=== PATIENT | female | born 1965 | race Caucasian/White ===

== ENCOUNTER 2017-06-25 09:00 | Inpatient (IN) | payer BC ==
--- NOTE | 2017-06-12 17:08 | HP ---
HISTORY AND PHYSICAL: DATE OF SURGERY: 06/25/17 DATE OF OFFICE VISIT: 06/12/17 SURGEON: Martha Rocha MD * (DICTATED BY LAURY KRAMER) PROCEDURE: Left total knee arthroplasty. CHIEF COMPLAINT: Left knee pain. HISTORY OF PRESENT ILLNESS: Ms. Dinero is a 52-year-old female with complaints of left knee pain. She has failed conservative management and has elected to proceed with a left total knee arthroplasty, which is scheduled on 06/25/[address] Rocha. PAST MEDICAL HISTORY: COPD, depression, and basal cell carcinoma of the skin. PAST SURGICAL HISTORY: Tonsillectomy, cholecystectomy, excision of the basal cell, and removal of an ectopic . CURRENT MEDICATIONS: 1. Meloxicam 15 mg daily. 2. Levocetirizine dihydrochloride 5 mg daily. 3. Symbicort. 4. Nasonex. 5. Ventolin HFA. 6. Duloxetine 60 mg every morning. 7. Alprazolam 0.5 mg 3 times a day as needed. 8. Morrice 5/325 every 6 hours as needed. ALLERGIES: To ADHESIVE TAPE. FAMILY HISTORY: Depression, emphysema, diabetes, asthma. SOCIAL HISTORY: She is a 52-year-old female. She lives with her daughter and son. She smokes one and a half to two packs of cigarettes daily for the last 30 years. She denies use of drugs or alcohol. REVIEW OF SYSTEMS: A complete 14-point review of systems was reviewed with the patient. It was positive for COPD. She denies history of DVT, PE, anesthesia problems, hepatitis C, or HIV. PHYSICAL EXAMINATION GENERAL: She is an obese female, in no acute distress. VITAL SIGNS: She stands 5 feet 7 inches tall, weighs 305 pounds. Her blood pressure is 121/71, her heart rate is 82. HEENT: Normocephalic, atraumatic. NECK: Supple. No palpable lymph nodes. PULMONARY: Lungs are clear to auscultation bilaterally. CARDIO: Regular rate and rhythm. Strong S1, S2. ABDOMEN: Soft, nontender, nondistended. NEUROLOGICAL: She is alert and oriented x3. Cranial nerves II through XII are intact. MUSCULOSKELETAL: Left lower extremity, the skin is intact. There are no open wounds or abrasions. There is a moderate joint effusion, tenderness over the medial and lateral joint line. 5 to 125 degrees of range of motion. 2+ dorsalis pedis pulses. Her lower extremity muscle strengths are intact at 5/5. She has intact sensation. ASSESSMENT AND PLAN: Ms. Dinero is a 52-year-old female with complaints of left knee pain secondary to advanced osteoarthrosis. She has failed conservative management and has elected to proceed with a left total knee arthroplasty, which is scheduled for 06/25/17. Coumadin, Colace, and Percocet were sent to her pharmacy for postoperative pain control and DVT prophylaxis. LAURY KRAMER [id number]/[facility] #: [id number] KRISTINA
[~2017-06-25 09:00] MED LIST: Buffered Lidocaine 0.9% SYRIN* 5 ML/SYR SYRINGE INTRADERM ONE; Famotidine IV* 10 MG/ML 2 ML (20 mg) IV ONE; Metoclopramide TAB* 10 MG PO ONE
[2017-06-25] MEDS ORDERED: Metoclopramide TAB* 10 MG ONE (09:32)
[2017-06-25] MEDS ORDERED: Buffered Lidocaine 0.9% SYRIN* 5 ML/SYR SYRINGE ONE (09:32)
[2017-06-25] MEDS ORDERED: ceFAZolin 2 GM PREMIX (*) 2 GM/50 ML BAG IVPB ONE (09:32)
[2017-06-25] MEDS ORDERED: Famotidine IV* 10 MG/ML 2 ML (20 mg) ONE (09:32)
[2017-06-25] MEDS ORDERED: ceFAZolin 1 GM ADVAN(*) 1 GM ADDV.VIAL IVPB ONE (09:32)
[2017-06-25] MEDS ORDERED: Ketorolac INJ* 30 MG/ML 1 ML VIAL ONE (10:55)
[2017-06-25] MEDS ORDERED: Lidocaine 2% PF * 5 ML VIAL ONE (10:55)
[2017-06-25] MEDS ORDERED: Bupivacaine 0.5% SDV PF* 30 ML VIAL ONE (10:55)
[2017-06-25] MEDS ORDERED: Ondansetron INJ* 2 MG/ML VIAL ONE (10:55)
[2017-06-25] MEDS ORDERED: Dexamethasone IV* 4 MG/ML 1 ML (4 MG) ONE (10:55)
[2017-06-25] MEDS ORDERED: Propofol* 10 MG/ML 20 ML BTL IV PUSH ONE (10:55)
[2017-06-25] MEDS ORDERED: Midazolam* 1 MG/ML 5 ML VIAL (5 MG) ONE (10:56)
[2017-06-25] MEDS ORDERED: Morphine PF AMP (0.5MG/ML)* 5 MG/10 ML AMP ONE (10:56)
[2017-06-25] MEDS ORDERED: fentaNYL* 50 MCG/ML 2 ML VIAL (100 MCG VIAL) ONE (10:56)
[2017-06-25] MEDS ORDERED: KETAMINE HCL* 50 MG/ML 10 ML VIAL ONE (10:56)
[2017-06-25] MEDS ORDERED: Midazolam* 1 MG/ML 2 ML VIAL (2 MG) ONE (12:23)
[2017-06-25] MEDS ORDERED: Propofol* 500 MG/50 ML BTL ONE (12:37)
[2017-06-25] MEDS ORDERED: Lidocaine 2% EPI 1:200000 MPF* 20 ML VIAL ONE (12:49)
[2017-06-25] MEDS ORDERED: fentaNYL* 50 MCG/ML 2 ML VIAL (100 MCG VIAL) IV PRN (13:28)
[2017-06-25] MEDS ORDERED: Ondansetron INJ* 2 MG/ML VIAL IV PRN ×2 (13:28→13:30)
[2017-06-25] MEDS ORDERED: Naloxone* 0.4 MG/ML 1 ML VIAL IV PRN ×3 (13:30→13:36)
[2017-06-25] MEDS ORDERED: oxyCODONE/Acetamin 5/325 MG* TAB PO PRN ×2 (13:30)
[2017-06-25] MEDS ORDERED: EPHEDrine (Pressors)* 50 MG/ML VIAL IV PUSH PRN (13:30)
[2017-06-25] MEDS ORDERED: diPHENhydraMINE IV* 50 MG/ML 1 ml VIAL (BENADRYL) IV PRN (13:30)
[2017-06-25] MEDS ORDERED: Ketorolac INJ* 30 MG/ML 1 ML VIAL IV PRN (13:30)
[2017-06-25] MEDS ORDERED: Ropivacaine* 300 MG in NS 0.9% 250 ML* 240 ML EPIDURAL SCH (14:00)
[2017-06-25] MEDS ORDERED: Bisacodyl SUPP* 10 MG SUPP PR PRN (14:14)
[2017-06-25] MEDS ORDERED: Polyethylene Glycol 3350* 17 GM PACKET PO PRN (14:14)
[2017-06-25] MEDS ORDERED: Albuterol HFA INHALER* 8 gm MDI INH PRN (14:29)
[2017-06-25] MEDS ORDERED: diPHENhydraMINE IV* 50 MG/ML 1 ml VIAL (BENADRYL) ONE (15:35)
[2017-06-25] MEDS ORDERED: Albuterol/Ipratropium NEB.SOL* Albuterol 2.5 MG/Ipratropium 0.5 MG 3 ML INH PRN (15:44)
[2017-06-25] MEDS ORDERED: Albuterol 2.5 MG/3 ML NEB.SOL* (0.083%) ONE (15:49)
[2017-06-25] MEDS ORDERED: Ipratropium 0.5MG/2.5ML NEB* 0.5 MG/2.5 ML NEB.SOLN ONE (15:50)
--- NOTE | 2017-06-25 15:58 | CONSULT ---
Subjective Date of Service: 06/25/17 Interval History: This is a 52 year old obese female with a longstanding history of osteoarthritis bilaterally of the knees. Patient states she has undergone conservative treatment over the years - PT, injections, anti-inflammatories, with no relief. Radiography shows end-stage degenerative disease of the knee. She has presented for elective LTKA. We have been consulted for medical co- managment of COPD. Family History: Unchanged from Admission - Mother - diet controlled DM Social History: Unchanged from Admission - 45 pack year hx of tobacco abuse; denies ETOH, denies illicit substance use Past Medical History: Findings - COPD, depression, anxiety, allergic rhinitis, OA, morbid obesity, tobacco abuse, hx of basal cell CA Review of Systems - Measurements Intake and Output: Intake and Output Last 24 Hours 06/23/17 06/24/17 06/25/17 06/26/17 06:59 06:59 06:59 06:59 Intake Total 2000 Output Total 350 Balance 1650 Weight 298 lb Intake: IV Fluids 1999 LR 1900 NS 50ML, Cefazolin 1G 50 NS 50ML, Cefazolin 2G 50 Output: Shah 350 - Review of Systems Constitutional Symptoms: Negative: Weight Gain, Weight Loss, Weakness, Fatigue, Fever, Night Sweats, Unexplained Falls, Other Dermatology: Positive: Other - healed scarring 2/2 basal cell CA excision/scalp HEENT: Positive: Normal Eyes: Positive: Normal Thyroid: Positive: Normal Pulmonary: Positive: Cough, Sputum, Wheezing, COPD, Exercise Intolerance Cardiology: Positive: Normal Gastroenterology: Positive: Normal Genital - Urinary: Positive: Normal Genitourinay - Female: Positive: Menopause Musculoskeletal: Positive: Joint Pain, Joint Stiffness, Arthritis, Joint Deformities Endocrinology: Positive: Obesity, Hyperglycemia Neurology: Positive: Normal Psychiatry: Positive: Normal Allergic/Immunologic: Positive: Hx Seasonal Objective Active Medications: Albuterol/Ipratropium (Duoneb (Albuterol 2.5 Mg/Ipratropium 0.5 Mg)) 1 neb INH Q6H PRN PRN Reason: SOB/WHEEZING Bisacodyl (Dulcolax Supp*) 10 mg CA DAILY PRN PRN Reason: constipation Budesonide/Formoterol Fumarate (Symbicort 160/4.5 (Nf)) 1 puff INH BID MYRA PRN Reason: Protocol Diphenhydramine HCl (Benadryl Iv*) 25 mg IV Q6H PRN PRN Reason: PRURITIS Last Admin: 06/25/17 15:35 Dose: 25 mg Diphenhydramine HCl (Benadryl Iv*) 25 mg IV Q6H PRN PRN Reason: itching Docusate Sodium (Colace Cap*) 100 mg PO BID [facility] Duloxetine HCl (Cymbalta Cap*) 60 mg PO QPM [facility] Enoxaparin Sodium (Lovenox(*)) 40 mg SUBCUT Q24H [facility] Ephedrine Sulfate (Ephedrine Sulfate (Pressors)*) 5 mg IV PUSH Q5M PRN PRN Reason: HYPOTENSION Famotidine (Pepcid Iv*) 20 mg IV ONCE ONE Stop: 06/25/17 06:01 Last Admin: 06/25/17 09:39 Dose: 20 mg Fentanyl Citrate (Fentanyl*) 25 mcg IV Q5M PRN PRN Reason: HEADACHE/DISCOMFORT Lactated Ringer's (Lactated Ringers 1000 Ml Bag*) 1,000 mls @ 125 mls/hr IV PER RATE [facility] Last Admin: 06/25/17 09:39 Dose: 125 mls/hr Ropivacaine 300 mg/ Sodium (Chloride) 300 mls @ 0 mls/hr EPIDURAL Q24H [facility]; Per Protocol PRN Reason: Protocol Stop: 06/26/17 06:00 Lactated Ringer's (Lactated Ringers 500 Ml Bag*) 500 mls @ 2,000 mls/hr IV ONCE PRN PRN Reason: FOR SBP < 90 Cefazolin Sodium 1 gm/ Sodium (Chloride) 50 mls @ 200 mls/hr IVPB Q8H [facility] Stop: 06/26/17 07:14 Lactated Ringer's (Lactated Ringers 1000 Ml Bag*) 1,000 mls @ 100 mls/hr IV PER RATE [facility] Ketorolac Tromethamine (Toradol Inj*) 30 mg IV Q6H PRN PRN Reason: PAIN Lactulose (Lactulose*) 30 ml PO ONCE PRN PRN Reason: CONSTIPATION Levocetirizine (Xyzal Tab (Nf)) 5 mg PO QPM [facility] Lidocaine/Sodium Bicarbonate (Buffered Lidocaine 0.9% Syrin*) 0.2 ml INTRADERM ONCE ONE Stop: 06/24/17 14:37 Last Admin: 06/25/17 09:38 Dose: 1 applic Magnesium Hydroxide (Milk Of Magnesia Liq*) 30 ml PO BID [facility] Metoclopramide HCl (Reglan Tab*) 10 mg PO ONCE ONE Stop: 06/25/17 06:01 Last Admin: 06/25/17 09:39 Dose: 10 mg Mometasone Furoate (Nasonex (Nf)) spray BOTH NARES QPM [facility] Montelukast Sodium (Singulair Tab*) 10 mg PO QPM [facility] Morphine Sulfate (Morphine Inj (Syringe)*) 4 mg IV Q2H PRN PRN Reason: PAIN Multivitamins (Theragran Tab*) 1 tab PO DAILY [facility] Naloxone HCl (Narcan*) 0.08 mg IV Q10M PRN PRN Reason: respiratory depression Naloxone HCl (Narcan*) 0.08 mg IV Q2M PRN PRN Reason: Respiratory rate < 10 Naloxone HCl (Narcan*) 0.08 mg IV Q2M PRN PRN Reason: respiratory depression Ondansetron HCl (Zofran Inj*) 4 mg IV ONCE PRN PRN Reason: NAUSEA/VOMITING Ondansetron HCl (Zofran Inj*) 4 mg IV Q6H PRN PRN Reason: NAUSEA/VOMITING Ondansetron HCl (Zofran Inj*) 4 mg IV Q6H PRN PRN Reason: nausea Ondansetron HCl (Zofran Tab*) 4 mg PO Q6H PRN PRN Reason: NAUSEA Oxycodone HCl (Roxycodone Tab*) 10 mg PO Q4H PRN PRN Reason: PAIN - MODERATE Oxycodone/Acetaminophen (Percocet 5/325 Tab*) 1 tab PO Q3H PRN PRN Reason: moderate pain Oxycodone/Acetaminophen (Percocet 5/325 Tab*) 2 tab PO Q4H PRN PRN Reason: moderate pain Oxycodone/Acetaminophen (Percocet 5/325 Tab*) 1 tab PO Q4H PRN PRN Reason: PAIN Oxycodone/Acetaminophen (Percocet 5/325 Tab*) 2 tab PO Q4H PRN PRN Reason: PAIN Polyethylene Glycol/Electrolytes (Miralax*) 17 gm PO DAILY PRN PRN Reason: Constipation Warfarin Sodium (Coumadin Tab(*)) 6 mg PO ONCE@1700 ONE PRN Reason: Protocol Stop: 06/25/17 17:01 Vital Signs 06/25/17 06/25/17 06/25/17 09:28 15:00 15:05 Temperature 97.7 F 98.8 F Pulse Rate 80 76 68 Respiratory 20 16 15 Rate Blood Pressure 129/71 110/92 110/64 (mmHg) O2 Sat by Pulse 95 98 96 Oximetry 06/25/17 06/25/17 06/25/17 15:10 15:30 15:37 Temperature Pulse Rate 72 71 64 Respiratory 16 15 16 Rate Blood Pressure 110/71 114/66 114/66 (mmHg) O2 Sat by Pulse 94 97 93 Oximetry Oxygen Devices in Use Now: Nasal Cannula Appearance: Well appearing Eyes: No Scleral Icterus Ears/Nose/Mouth/Throat: NL Teeth, Lips, Gums, Mucous Membranes Moist Neck: Trachea Midline, No Thyroid Enlargement, Masses Respiratory: - - Expiratory wheeze right > left, course breath sounds, diminished bases, non-productive cough Cardiovascular: NL Sounds; No Murmurs; No JVD Abdominal: NL Sounds; No Tenderness; No Distention Lymphatic: No Cervical Adenopathy Extremities: No Edema Skin: No Rash or Ulcers Neurological: Alert and Oriented x 3, NL Sensation Additional Lab and Data: Pre-op labs show fasting glucose of 126 EKG Data: Pre-op EKG reviewed, RSR with no ectopy and no ST segment changes Assessment/Plan - Billing Impression: This is a morbidly obese 52 year old female with longstanding history of bilateral osteoarthritis of the knees admitted to inpatient for an elective LTKA today. We are being consulted for co-medical management of COPD during her post-operative recovery Diagnoses and Plan 1. OA, s/p LTA 2. COPD, 2/2 tobacco use/abuse 3. Hx of Depression/Anxiety 4. Morbid Obesity, BMI = 46.7 5. Hyperglycemia 6. High Risk for Sleep apnea Plan - Primary POC as per orthopedic surgery, pain control, OOB with PT as per ortho , VTE prophy with lovenox - Patient counseled on smoking cessation, declined nicotine patch - Start duonebs Q6H, DC albuterol inhaler, monitor resp status closely while on narcotics - Continue symbicort, singulair - Continue cymbalta, hold trazodone - Recommend IS 10x per hour while awake - Follow BMP in am and monitor H&H - if sugar remains elevated, will address appropriately - Recommend low fat/low cholesterol diet - Full code Attending: Darrick Britton
--- NOTE | 2017-06-25 17:58 | RAD ---
INDICATION: Left knee arthroplasty COMPARISON: Preoperative knee radiograph March 18, 2017 TECHNIQUE: 2 view radiograph of the left knee. FINDINGS: The patient is status post left knee arthroplasty. The prosthesis is anatomically aligned. A surgical drain is in place. IMPRESSION: Anatomic alignment of left knee prosthesis with expected postsurgical changes.
[2017-06-25] MEDS ORDERED: Warfarin TAB(*) 6 MG PO ONE (18:00)
[2017-06-25] MEDS: Fluticasone NASAL SPRAY 50MCG* 16 gm SPRAY BTL BOTH NARES SCH (18:25)
[2017-06-25] MEDS: Cetirizine* 10 MG TAB PO SCH (18:25)
[2017-06-25] MEDS: DULoxetine DR CAP* 60 MG CAP.DR PO SCH (18:25)
[2017-06-25] MEDS: Montelukast Sodium TAB* 10 MG PO SCH (18:25)
[2017-06-25] MEDS: Magnesium Hydroxide LIQ* 30 ML UDC PO SCH (20:37)
[2017-06-25] MEDS: ceFAZolin 1 GM VIAL(*) 1 GM in NS 0.9% 50 ML* 50 ML IVPB SCH (20:37)
[2017-06-25] MEDS: Docusate CAP* 100 MG PO SCH (20:37)
[2017-06-25] MEDS: Mometasone/Formoter 200/5 MDI INH SCH (20:43)
[2017-06-26] MEDS: ceFAZolin 1 GM VIAL(*) 1 GM in NS 0.9% 50 ML* 50 ML IVPB SCH ×2 (04:11→12:03)
[2017-06-26 05:28] LABS: Hematocrit 33 % (35-47); Hemoglobin 11.1 g/dl (12.0-16.0)
[2017-06-26 05:41] LABS: BUN/Creatinine Ratio 27.2 (8-20); Calcium 8.3 mg/dL (8.6-10.3); EGFR African American 94.8 (>60); EGFR Non-African American 73.7 (>60); Potassium 4.2 mmol/L (3.5-5.0)
[2017-06-26] MEDS ORDERED: oxyCODONE/Acetamin 5/325 MG* TAB PO PRN (06:00)
[2017-06-26] MEDS ORDERED: Ondansetron INJ* 2 MG/ML VIAL IV PRN (06:00)
[2017-06-26] MEDS ORDERED: Ondansetron TAB* 4 MG PO PRN (06:00)
[2017-06-26] MEDS ORDERED: diPHENhydraMINE IV* 50 MG/ML 1 ml VIAL (BENADRYL) IV PRN (06:00)
--- NOTE | 2017-06-26 08:42 | PN ---
Progress Note - Progress Note Date of Service: 06/26/17 SOAP: Subjective: []Patient seen OOB in chair. No LLE pain, chest pain, SOB, leg numbness, nausea , fever, chills. Is passing gas, no BM yet. Objective: [] Vital Signs Temp 98.0 F 06/26/17 07:43 Pulse 75 06/26/17 07:43 Resp 16 06/26/17 07:43 BP 117/54 06/26/17 07:43 Pulse Ox 95 06/26/17 07:43 Intake & Output 06/25/17 06/26/17 06/26/17 18:59 06:59 18:59 Intake Total 2630 1663 428 Output Total 350 725 100 Balance 2280 938 328 Weight 298 lb Intake: IV Fluids 2600 1043 373 ABX - CEFAZOLIN 55 LR 2500 988 373 NS 50ML, Cefazolin 1G 50 NS 50ML, Cefazolin 2G 50 IVPB 55 ABX - CEFAZOLIN 55 Oral 30 620 Output: Urine 100 Shah 350 725 Laboratory Last Values Hgb 11.1 g/dl (12.0-16.0) L 06/26/17 05:18 Hct 33 % (35-47) L 06/26/17 05:18 INR (Anticoag Therapy) 1.02 (0.89-1.11) 06/26/17 05:18 Sodium 133 mmol/L (133-145) 06/26/17 05:18 Potassium 4.2 mmol/L (3.5-5.0) 06/26/17 05:18 Chloride 105 mmol/L (101-111) 06/26/17 05:18 Carbon Dioxide 23 mmol/L (22-32) 06/26/17 05:18 Anion Gap 5 mmol/L (2-11) 06/26/17 05:18 BUN 22 mg/dL (6-24) 06/26/17 05:18 Creatinine 0.81 mg/dL (0.51-0.95) 06/26/17 05:18 Est GFR ( Amer) 94.8 (>60) 06/26/17 05:18 Est GFR (Non-Af Amer) 73.7 (>60) 06/26/17 05:18 BUN/Creatinine Ratio 27.2 (8-20) H 06/26/17 05:18 Glucose 124 mg/dL (70-100) H 06/26/17 05:18 Calcium 8.3 mg/dL (8.6-10.3) L 06/26/17 05:18 General: Calm, cooperative, no acute distress LLE: Dr. Rocha pulled drain this morning without complication. Dressing CDI BL LE: Calves supple and nontender without erythema, edema or palpable cords. Negative ching's sign. DF/PF intact. DP/PT 2+. Sensation intact distally. Assessment: []POD 1 S/P Left total knee arthroplasty 06/25 Plan: []WBAT PT/OT Lovenox, coumadin 8 mg tonight Continued pain control. hospitalist co-managing
[2017-06-26] MEDS: Morphine INJ* 4 MG/ML 1 ML CARPUJECT IV PRN ×3 (09:06→13:52)
[2017-06-26] MEDS: Vitamin THERAPEUTIC TAB PO SCH (09:08)
[2017-06-26] MEDS: Magnesium Hydroxide LIQ* 30 ML UDC PO SCH ×2 (09:08→21:55)
[2017-06-26] MEDS: Docusate CAP* 100 MG PO SCH ×2 (09:08→21:55)
[2017-06-26] MEDS: Mometasone/Formoter 200/5 MDI INH SCH ×2 (09:11→20:41)
[2017-06-26] MEDS: oxyCODONE TAB* 5 MG TAB PO PRN ×3 (09:48→17:56)
--- NOTE | 2017-06-26 10:31 | PN ---
Subjective Date of Service: 06/26/17 Interval History: Patient seen and examined, POD1. No acute overnight events. Patient is in NAD. Had some low sats this morning as per nursing staff. Was on room air, dropped to 86%, was placed on 2LNC, now 94-95% and no c/o SOB. Was also placed on Continuous end-tidal last night. States she has productive cough and is feeling "better". With oxygen on. Refused neb treatment this am. Explained importance of accepting respiratory treatments during her recovery given her COPD and history of heavy smoking. Patient states her understanding of POC. Denies acute SOB, no chest pain, no n/v. Surgical pain well controlled, described as "sore", no calf pain. Family History: Unchanged from Admission - Mother - diet controlled DM Social History: Unchanged from Admission - 45 pack year hx of tobacco abuse; denies ETOH, denies illicit substance use Past Medical History: Findings - COPD, depression, anxiety, allergic rhinitis, OA, morbid obesity, tobacco abuse, hx of basal cell CA Objective Active Medications: Albuterol/Ipratropium (Duoneb (Albuterol 2.5 Mg/Ipratropium 0.5 Mg)) 1 neb INH Q6H [facility] Bisacodyl (Dulcolax Supp*) 10 mg UT DAILY PRN PRN Reason: constipation Cetirizine HCl (Zyrtec*) 10 mg PO QPM [facility] Last Admin: 06/25/17 18:25 Dose: 10 mg Diphenhydramine HCl (Benadryl Iv*) 25 mg IV Q6H PRN PRN Reason: itching Docusate Sodium (Colace Cap*) 100 mg PO BID [facility] Last Admin: 06/26/17 09:08 Dose: 100 mg Duloxetine HCl (Cymbalta Cap*) 60 mg PO QPM [facility] Last Admin: 06/25/17 18:25 Dose: 60 mg Enoxaparin Sodium (Lovenox(*)) 40 mg SUBCUT Q24H [facility] Fentanyl Citrate (Fentanyl*) 25 mcg IV Q5M PRN PRN Reason: HEADACHE/DISCOMFORT Stop: 06/26/17 20:00 Fluticasone Propionate (Flonase Nasal [place] 50mcg*) 1 spray BOTH NARES QPM [facility] Last Admin: 06/25/17 18:25 Dose: 1 spray Cefazolin Sodium 1 gm/ Sodium (Chloride) 50 mls @ 200 mls/hr IVPB Q8H [facility] Stop: 06/26/17 12:44 Last Admin: 06/26/17 04:11 Dose: 200 mls/hr Lactated Ringer's (Lactated Ringers 1000 Ml Bag*) 1,000 mls @ 100 mls/hr IV PER RATE [facility] Last Admin: 06/26/17 03:40 Dose: 100 mls/hr Lactulose (Lactulose*) 30 ml PO ONCE PRN PRN Reason: CONSTIPATION Magnesium Hydroxide (Milk Of Magnesia Liq*) 30 ml PO BID [facility] Last Admin: 06/26/17 09:08 Dose: 30 ml Mometasone Furoate/Formoterol Fumar (Dulera 200/5 Mdi*) 1 puff INH BID [facility] PRN Reason: Protocol Last Admin: 06/26/17 09:11 Dose: Not Given Montelukast Sodium (Singulair Tab*) 10 mg PO QPM [facility] Last Admin: 06/25/17 18:25 Dose: 10 mg Morphine Sulfate (Morphine Inj (Syringe)*) 4 mg IV Q2H PRN PRN Reason: PAIN Last Admin: 06/26/17 09:06 Dose: 4 mg Multivitamins (Theragran Tab*) 1 tab PO DAILY [facility] Last Admin: 06/26/17 09:08 Dose: 1 tab Ondansetron HCl (Zofran Inj*) 4 mg IV Q6H PRN PRN Reason: nausea Ondansetron HCl (Zofran Tab*) 4 mg PO Q6H PRN PRN Reason: NAUSEA Oxycodone HCl (Roxycodone Tab*) 10 mg PO Q4H PRN PRN Reason: PAIN - MODERATE Last Admin: 06/26/17 09:48 Dose: 10 mg Oxycodone/Acetaminophen (Percocet 5/325 Tab*) 1 tab PO Q4H PRN PRN Reason: PAIN Oxycodone/Acetaminophen (Percocet 5/325 Tab*) 2 tab PO Q4H PRN PRN Reason: PAIN Pharmacy Profile Note (Coumadin Daily Reminder*) 1 note FOLLOW UP 1700 [facility] Polyethylene Glycol/Electrolytes (Miralax*) 17 gm PO DAILY PRN PRN Reason: Constipation Vital Signs 06/25/17 06/25/17 06/25/17 15:00 15:05 15:10 Temperature 98.8 F Pulse Rate 76 68 72 Respiratory 16 15 16 Rate Blood Pressure 110/92 110/64 110/71 (mmHg) O2 Sat by Pulse 98 96 94 Oximetry 06/25/17 06/25/17 06/25/17 15:30 15:37 15:54 Temperature Pulse Rate 71 64 64 Respiratory 15 16 15 Rate Blood Pressure 114/66 114/66 104/57 (mmHg) O2 Sat by Pulse 97 93 98 Oximetry 06/25/17 06/25/17 06/25/17 16:01 16:15 16:31 Temperature 97.5 F Pulse Rate 65 61 75 Respiratory 15 16 15 Rate Blood Pressure 104/55 110/70 112/64 (mmHg) O2 Sat by Pulse 93 93 Oximetry 06/25/17 06/25/17 06/25/17 16:45 16:57 17:15 Temperature 98.1 F 98.6 F Pulse Rate 76 62 72 Respiratory 16 16 18 Rate Blood Pressure 124/74 110/59 109/52 (mmHg) O2 Sat by Pulse 96 93 92 Oximetry 06/25/17 06/25/17 06/25/17 18:00 18:21 18:45 Temperature 98.8 F Pulse Rate 75 Respiratory 20 20 16 Rate Blood Pressure 113/59 (mmHg) O2 Sat by Pulse 89 92 Oximetry 06/25/17 06/25/17 06/25/17 19:20 20:00 21:29 Temperature 98.9 F 98.2 F Pulse Rate 89 89 Respiratory 18 20 18 Rate Blood Pressure 95/52 93/59 (mmHg) O2 Sat by Pulse 97 92 94 Oximetry 06/25/17 06/25/17 06/25/17 21:31 22:00 23:25 Temperature 97.7 F Pulse Rate 90 76 Respiratory 16 20 Rate Blood Pressure 107/59 116/50 (mmHg) O2 Sat by Pulse 90 91 Oximetry 06/26/17 06/26/17 06/26/17 00:00 00:50 02:07 Temperature Pulse Rate Respiratory 20 18 21 Rate Blood Pressure (mmHg) O2 Sat by Pulse 91 91 Oximetry 06/26/17 06/26/17 06/26/17 03:13 04:00 04:49 Temperature 97.7 F Pulse Rate 70 Respiratory 18 16 Rate Blood Pressure 111/54 (mmHg) O2 Sat by Pulse 93 92 93 Oximetry 06/26/17 06/26/17 06/26/17 05:44 06:00 07:43 Temperature 98.0 F Pulse Rate 75 Respiratory 20 20 16 Rate Blood Pressure 117/54 (mmHg) O2 Sat by Pulse 90 95 Oximetry 06/26/17 06/26/17 06/26/17 09:06 09:09 09:48 Temperature Pulse Rate Respiratory 18 18 18 Rate Blood Pressure (mmHg) O2 Sat by Pulse Oximetry Oxygen Devices in Use Now: None, Nasal Cannula - Continuous end-tidal CO@, Other Eyes: No Scleral Icterus Ears/Nose/Mouth/Throat: Mucous Membranes Moist Neck: NL Appearance and Movements; NL JVP Respiratory: Symmetrical Chest Expansion and Respiratory Effort - Mild expiratory wheeze, less rhonchi today, diminished bases Cardiovascular: NL Sounds; No Murmurs; No JVD Abdominal: NL Sounds; No Tenderness; No Distention Extremities: No Edema Skin: No Rash or Ulcers - Surgical dressing JUS, CDI Neurological: Alert and Oriented x 3 Nutrition: Taking PO's Result Diagrams: 06/26/17 05:18 06/26/17 05:18 Assess/Plan/Problems-Billing Impression: This is a morbidly obese 52 year old female with history of bilateral osteoarthritis of the knees admitted to inpatient 06/25/17 for an elective LTKA. We are continuing to co-manage medically for COPD and other co- morbidities. - Patient Problems (1) Status post total left knee replacement Code(s): Z96.652 - PRESENCE OF LEFT ARTIFICIAL KNEE JOINT SNOMED Code(s): 9107113149553 Comment: - Primary POc as per ortho - Pain control and VTE prophy as per surgery - OOB and PT/amulation as per surgery (2) COPD (chronic obstructive pulmonary disease) Code(s): J44.9 - CHRONIC OBSTRUCTIVE PULMONARY DISEASE, UNSPECIFIED SNOMED Code(s): 52550348 Comment: - O2 via NC to maintain sats >92% - Continuous end-tidal while on narcotic pain managment and while asleep - Continue symbicort and singulair - Change to duonebs scheduled Q6H for next 24h then re-assess resp status - Continue IS 10x Q1H while awake - Encourage ambulation, cough and deep breathing (3) Morbid obesity with BMI of 45.0-49.9, adult Code(s): E66.01 - MORBID (SEVERE) OBESITY DUE TO EXCESS CALORIES; Z68.42 - BODY MASS INDEX (BMI) 45.0-49.9, ADULT SNOMED Code(s): 923359134 Comment: - Changed to 1800 minoo diet ADA compliant (4) Tobacco abuse Code(s): Z72.0 - TOBACCO USE SNOMED Code(s): 259686083 Comment: - Counseled - Nicotine replacement therapy declined (5) Depression Code(s): F32.9 - MAJOR DEPRESSIVE DISORDER, SINGLE EPISODE, UNSPECIFIED SNOMED Code(s): 99625844 Comment: - Continue cymbalta - Hold trazodone given narcotics/sedation/sleep apnea risk - Mood stable, supportive care (6) Obstructive sleep apnea Code(s): G47.33 - OBSTRUCTIVE SLEEP APNEA (ADULT) (PEDIATRIC) SNOMED Code(s): 39025053 Comment: - Monitor continuous end tidal - Monitor respiratory status (7) Hyperglycemia Code(s): R73.9 - HYPERGLYCEMIA, UNSPECIFIED SNOMED Code(s): 77616646 Comment: - 1800 ADA diet - Check BMP/glucose in AM - Counseled on diet (8) Dehydration, mild Code(s): E86.0 - DEHYDRATION SNOMED Code(s): 6027795513996 Comment: - Elevated BUN today, mild, etiology likely post-op - Continue maintenance IVF - Encourage free water intake - Check BMP in am Status and Disposition: Status: Progressing as expected Disposition: Stable Counseling and/or Coordination of Care Minutes: POC coordinated with Natalia Mcintyre PA-C, Orthopedic Team and nursing staff Attending: Darrick Britton
[2017-06-26] MEDS ORDERED: Albuterol/Ipratropium NEB.SOL* Albuterol 2.5 MG/Ipratropium 0.5 MG 3 ML INH SCH (11:00)
--- NOTE | 2017-06-26 13:11 | OP ---
OPERATIVE REPORT: DATE OF OPERATION: 06/25/17 DATE OF : 61 ATTENDING SURGEON: Martha Rocha MD FIELD HOC[employer] AND LACROSSE COACH: LAURY Manning Ms. did help throughout the procedure with preparation of the leg, wound retraction, manipul ation of the knee, and wound closure. ANESTHESIOLOGIST: Dr. James. ANESTHESIA: Spinal. PRE-OP DIAGNOSIS: Severe end-stage degenerative osteoarthritis of the left knee joint. POST-OP DIAGNOSIS: Severe end-stage degenerative osteoarthritis of the left knee joint. OPERATIVE PROCEDURE: Left total knee arthroplasty. TOURNIQUET TIME: 50 minutes. COMPLICATIONS: None. ESTIMATED BLOOD LOSS: 300 cc. SPECIMENS: Bone and cartilage from the left knee joint sent to Pathology. HARDWARE USED: This is [employer] cemented total knee arthroplasty hardware. Two packages of S implex bone cement. For the femur, a size 5 left narrow Oxinium femoral component. For the tibia, a size 3 left tibial baseplate. For the insert, an 11-mm posterior stabilized articular insert, size 3-4. For the patella, 32-mm 3- peg all poly patella. BRIEF HISTORY/INDICATIONS: Ms. Dinero is a 52-year-old morbidly obese female with years of increasing ly severe left knee pain. She failed conservative treatment with anti-inflammatories, pain medicatio ns, intraarticular injections, and physical therapy. Radiographs confirmed [id number] arthritis. She has elected to undergo left total knee arthroplasty due to continued pain and decreased quality o f life. Informed consent was obtained from the patient. She understood the risks of procedure includ ed, but were not limited to bleeding, infection, damage to nearby structures, continued pain, need fo r further surgery, intraoperative fracture, nerve palsy, hardware failure or loosening, knee stiffnes s, loss of motion, stroke, heart attack, blood clot, and . She wished to proceed. INTRAOPERATIVE FINDINGS: Intraoperatively, the patient was noted to have severe arthritis with compl ete loss of cartilage in the medial and patellofemoral compartments. DESCRIPTION OF PROCEDURE: Ms. Dinero was identified in the preanesthesia unit. Her left lower extrem ity was marked as the correct operative side. Informed consent was signed and placed in the chart. The patient was taken to the operating room and placed under spinal anesthesia. A Shah catheter was placed. Tourniquet was placed on the left thigh. The left lower extremity was prepped and draped i n the usual sterile fashion. Preop time-out was made to correctly identify the patient's side and si te. Appropriate perioperative antibiotics were given within 1 hour of incision. A midline incision was made with a 10 blade and carried down to the extensor mechanism. New, 10 blad e was used to make a standard medial parapatellar arthrotomy. The patella was subluxed laterally. E lectrocautery was used to subperiosteally elevate the soft tissue off the superomedial tibia to the m id sagittal plane. The knee was flexed up and the anterior horn of the lateral meniscus and ACL were sharply released. A drill was used to enter the distal femur. Intramedullary distal femoral cuttin g guide was pinned down the distal femur. Oscillating saw was used to make the appropriate distal fe moral cut. Next, the external rotation guide was pinned down the distal femur. Distal femur was siz ed to size 5. Size 5 multi-cutting jig was pinned down the distal femur. Oscillating saw was used to make the appropriate chamfer cuts. The PCL was completely released. The tibia was subluxed anteriorly. Extramedullary tibial cutting gu kyle was pinned on the proximal tibia. Oscillating saw was used to make the proximal tibial cut perpe ndicular to the mechanical axis of the tibia. The knee was brought out into full extension. There w as adequate medial and lateral ligamentous balancing. The spacer block had good fit and full extensi on. Flexion and extension gaps were well balanced. The knee was flexed up. Lamina clicker operator was plac ed both medially and laterally. Any remaining meniscus was carefully removed using electrocautery. Curved osteotome was used to remove the posterior osteophytes. A tibial tray and drop dayanna confirmed satisfactory tibial cut once again. A trial size 50 left femur was impacted on to the distal femur and had excellent fit. The box for th e posterior stabilized implant was prepared using a reamer and box cut osteotome. A trial size 3 lef t tibial tray and an 11-mm insert trial was placed. The knee was taken through a range of motion and had full extension to 120 degrees of flexion. There was satisfactory patellofemoral tracking. The patella was everted. A 9-mm of patellar bone and cartilage were carefully removed from the patella u sing an oscillating saw. The patella was sized to a size 32. Three peg holes were drilled through t he size 32 guide. A 32 trial patella was placed and the knee was taken through a range of motion. T here was satisfactory patellofemoral tracking. All trials were carefully removed. The tibia was subluxed anteriorly and sized to size 3. The proxi mal tibia was prepared using a size 3 keel punch. All bony cut surfaces were copiously irrigated wit h sterile saline and dry. The final implants were cemented into place starting with the tibia, follo wed by the femur, and lastly the patella. An 11-mm insert trial was placed while the knee was paul t into full extension. The tourniquet was turned down at 50 minutes. The knee was copiously irrigat ed with sterile saline. Electrocautery was used to obtain meticulous hemostasis. Once the cement had fully cured, the insert trial was carefully removed. Any excess cement around th e capsule and hardware was carefully removed. Final insert chosen was an 11-mm posterior stabilized articular insert size 3-4. This was locked into position on the tibial tray. Stability of the inser t was checked and rechecked and noted to be stable. The knee was once again copiously irrigated with sterile saline. The extensor mechanism was closed over the medium Hemovac drain using interrupted # 1 Vicryls. The rest of the incision was closed in a layered fashion using 0 and 2-0 Vicryls. Skin w as closed using running 3-0 nylon suture. Sterile Xeroform, 4x4s, and Webril were used to cover the i ncision. Curt wrap and cold packs were placed over this. The patient's anesthesia was reversed without difficulty. She was taken to the PACU in stable condit ion. Intended weightbearing will be weightbearing as tolerated. Intended DVT prophylaxis will be Co umadin with Lovenox bridge. [id number]/[facility] #: [id number]
[2017-06-26] MEDS ORDERED: Albuterol/Ipratropium NEB.SOL* Albuterol 2.5 MG/Ipratropium 0.5 MG 3 ML INH PRN (14:05)
[2017-06-26] MEDS ORDERED: Cyclobenzaprine TAB* 10 MG ONE (15:41)
[2017-06-26] MEDS: Cyclobenzaprine TAB* 10 MG PO PRN (15:42)
[2017-06-26] MEDS: oxyCODONE/Acetamin 5/325 MG* TAB PO PRN ×2 (16:12→22:21)
[2017-06-26] MEDS: Enoxaparin(*) 40 MG/0.4 ML SYR SUBCUT SCH (16:13)
[2017-06-26] MEDS ORDERED: Warfarin TAB(*) 4 MG PO ONE (17:00)
[2017-06-26] MEDS ORDERED: Ketorolac INJ* 30 MG/ML 1 ML VIAL IV PUSH PRN (17:14)
[2017-06-26] MEDS: Ketorolac INJ* 30 MG/ML 1 ML VIAL IV PUSH PRN (17:38)
[2017-06-26] MEDS: Cetirizine* 10 MG TAB PO SCH (17:38)
[2017-06-26] MEDS: Fluticasone NASAL SPRAY 50MCG* 16 gm SPRAY BTL BOTH NARES SCH (17:38)
[2017-06-26] MEDS: DULoxetine DR CAP* 60 MG CAP.DR PO SCH (17:38)
[2017-06-26] MEDS: Montelukast Sodium TAB* 10 MG PO SCH (17:38)
[2017-06-27 05:28] LABS: Hematocrit 32 % (35-47); Hemoglobin 11.1 g/dl (12.0-16.0)
[2017-06-27] MEDS: Cyclobenzaprine TAB* 10 MG PO PRN ×2 (06:04→15:19)
[2017-06-27] MEDS: oxyCODONE TAB* 5 MG TAB PO PRN ×3 (07:44→18:16)
[2017-06-27] MEDS: Docusate CAP* 100 MG PO SCH ×2 (07:44→20:49)
[2017-06-27] MEDS: Magnesium Hydroxide LIQ* 30 ML UDC PO SCH ×2 (07:44→20:49)
[2017-06-27] MEDS: Vitamin THERAPEUTIC TAB PO SCH (07:45)
[2017-06-27] MEDS: Mometasone/Formoter 200/5 MDI INH SCH ×2 (07:45→20:43)
--- NOTE | 2017-06-27 08:45 | PN ---
Progress Note - Progress Note Date of Service: 06/27/17 SOAP: Subjective: [Pt. reports doing well with pain management. Is on O2 (4L) because of sats dropping into 80s when off O2. Denies CP, nausea, calf pain. Has done stairs with PT. Had BM this morning.] Objective: [A and O x 3. NAD L knee dressing changed. Incision benign. Swelling and ecchymosis present. No erythema or drainage. Calf soft, NT. Distal gross motor and NV function intact distally. Vital Signs: Temp Pulse Resp BP Pulse Ox 98.1 F 78 16 142/57 95 06/27/17 03:58 06/27/17 03:58 06/27/17 07:44 06/27/17 03:58 06/27/17 03:58 Laboratory Results - last 24 hr 06/27/17 06/27/17 04:44 05:06 Hgb 11.1 L Hct 32 L INR (Anticoag Therapy) 1.30 H ] Assessment: [s/p L TKA POD # 2] Plan: [Overnight pulse ox with recording. Patient will likely be sent home on O2 Pain management Con't PT/OT Hospitalist co-managing Plan for D/C home tomorrow]
--- NOTE | 2017-06-27 11:52 | PN ---
Subjective Date of Service: 06/27/17 Interval History: HOSPITALIST PROGRESS NOTE Patient seen and examined at bedside. She feels better today. Pain is controlled, oxygen weaned down to 2 liters. Denies dyspnea or change on her usual cough. Family History: Unchanged from Admission Social History: Unchanged from Admission Past Medical History: Unchanged from Admission Objective Active Medications: Albuterol/Ipratropium (Duoneb (Albuterol 2.5 Mg/Ipratropium 0.5 Mg)) 1 neb INH Q6H PRN PRN Reason: SOB/WHEEZING Bisacodyl (Dulcolax Supp*) 10 mg MO DAILY PRN PRN Reason: constipation Cetirizine HCl (Zyrtec*) 10 mg PO QPM [facility] Last Admin: 06/26/17 17:38 Dose: 10 mg Cyclobenzaprine HCl (Flexeril Tab*) 10 mg PO TID PRN PRN Reason: SPASMS Last Admin: 06/27/17 06:04 Dose: 10 mg Diphenhydramine HCl (Benadryl Iv*) 25 mg IV Q6H PRN PRN Reason: itching Docusate Sodium (Colace Cap*) 100 mg PO BID [facility] Last Admin: 06/27/17 07:44 Dose: 100 mg Duloxetine HCl (Cymbalta Cap*) 60 mg PO QPM [facility] Last Admin: 06/26/17 17:38 Dose: 60 mg Enoxaparin Sodium (Lovenox(*)) 40 mg SUBCUT Q24H [facility] Last Admin: 06/26/17 16:13 Dose: 40 mg Fluticasone Propionate (Flonase Nasal [place] 50mcg*) 1 spray BOTH NARES QPM [facility] Last Admin: 06/26/17 17:38 Dose: 1 spray Ketorolac Tromethamine (Toradol Inj*) 30 mg IV PUSH Q6H PRN PRN Reason: PAIN - BREAKTHROUGH Stop: 06/28/17 17:00 Last Admin: 06/26/17 17:38 Dose: 30 mg Lactulose (Lactulose*) 30 ml PO ONCE PRN PRN Reason: CONSTIPATION Magnesium Hydroxide (Milk Of Magnesia Liq*) 30 ml PO BID [facility] Last Admin: 06/27/17 07:44 Dose: 30 ml Mometasone Furoate/Formoterol Fumar (Dulera 200/5 Mdi*) 1 puff INH BID [facility] PRN Reason: Protocol Last Admin: 06/27/17 07:45 Dose: 1 puff Montelukast Sodium (Singulair Tab*) 10 mg PO QPM [facility] Last Admin: 06/26/17 17:38 Dose: 10 mg Morphine Sulfate (Morphine Inj (Syringe)*) 4 mg IV Q2H PRN PRN Reason: PAIN Last Admin: 06/26/17 13:52 Dose: 4 mg Multivitamins (Theragran Tab*) 1 tab PO DAILY [facility] Last Admin: 06/27/17 07:45 Dose: 1 tab Ondansetron HCl (Zofran Inj*) 4 mg IV Q6H PRN PRN Reason: nausea Ondansetron HCl (Zofran Tab*) 4 mg PO Q6H PRN PRN Reason: NAUSEA Oxycodone HCl (Roxycodone Tab*) 10 mg PO Q4H PRN PRN Reason: PAIN - MODERATE Last Admin: 06/27/17 11:43 Dose: 10 mg Oxycodone/Acetaminophen (Percocet 5/325 Tab*) 1 tab PO Q4H PRN PRN Reason: PAIN Last Admin: 06/27/17 02:58 Dose: 1 tab Oxycodone/Acetaminophen (Percocet 5/325 Tab*) 2 tab PO Q4H PRN PRN Reason: PAIN Last Admin: 06/26/17 22:21 Dose: 2 tab Pharmacy Profile Note (Coumadin Daily Reminder*) 1 note FOLLOW UP 1700 [facility] Last Admin: 06/26/17 16:26 Dose: 1 note Polyethylene Glycol/Electrolytes (Miralax*) 17 gm PO DAILY PRN PRN Reason: Constipation Warfarin Sodium (Coumadin Tab(*)) 8 mg PO ONCE@1700 ONE PRN Reason: Protocol Stop: 06/27/17 17:01 Vital Signs 06/27/17 06/27/17 11:34 11:43 Temperature 98.5 F Pulse Rate 88 Respiratory 18 16 Rate Blood Pressure 135/65 (mmHg) O2 Sat by Pulse 95 Oximetry Oxygen Devices in Use Now: Nasal Cannula - 2 liters Appearance: Morbid obese lady sitting up in bed in NAD. Eyes: No Scleral Icterus Ears/Nose/Mouth/Throat: Mucous Membranes Moist Neck: Trachea Midline Respiratory: Symmetrical Chest Expansion and Respiratory Effort, - - BS+ bilaterally decreased, no added sounds Cardiovascular: RRR - Normal S1 and S2 Extremities: - - No calf tenderness Neurological: Alert and Oriented x 3, NL Muscle Strength and Tone Lines/Tubes/Other Access: Clean, Dry and Intact Peripheral IV Nutrition: Taking PO's Result Diagrams: 06/27/17 05:06 06/26/17 05:18 Assess/Plan/Problems-Billing Assessment: Mrs. Dinero is 52 year old female with PMH of morbid obesity, COPD, tobacco abuse , depression anxiety, bilateral osteoarthritis of the knees admittedfor an elective LTKA. - Patient Problems (1) Status post total left knee replacement Comment: - Management as per Ortho. (2) COPD (chronic obstructive pulmonary disease) Comment: - Not on exacerbation at this time. - Continue bronchodilators and inhaled steroids. (3) Hypoxia Comment: - Suspect this is chronic, secondary to her COPD. - Requires 2 liters of O2 to maintain SO2<89%. (4) Tobacco abuse Comment: - Nicotine replacement therapy declined. (5) Hyperglycemia Comment: - Check A1c. - Will need f/u as outpatient. (6) DVT prophylaxis Comment: - Lovenox/Warfarin as per Ortho. (7) Full code status Status and Disposition: Inpatient. Ortho anticipates d/c in AM.
[2017-06-27] MEDS: Enoxaparin(*) 40 MG/0.4 ML SYR SUBCUT SCH (15:24)
[2017-06-27] MEDS: Ketorolac INJ* 30 MG/ML 1 ML VIAL IV PUSH PRN (15:28)
[2017-06-27] MEDS ORDERED: Warfarin TAB(*) 4 MG PO ONE (17:00)
[2017-06-27] MEDS: Cetirizine* 10 MG TAB PO SCH (18:17)
[2017-06-27] MEDS: Montelukast Sodium TAB* 10 MG PO SCH (18:17)
[2017-06-27] MEDS: DULoxetine DR CAP* 60 MG CAP.DR PO SCH (18:17)
[2017-06-27] MEDS: Fluticasone NASAL SPRAY 50MCG* 16 gm SPRAY BTL BOTH NARES SCH (18:17)
[2017-06-28] MEDS: oxyCODONE/Acetamin 5/325 MG* TAB PO PRN ×2 (04:57→09:26)
[2017-06-28 05:31] LABS: Hematocrit 32 % (35-47); Hemoglobin 10.9 g/dl (12.0-16.0); Mean Platelet Volume 8 um3 (7.4-10.4)
--- NOTE | 2017-06-28 08:45 | PN ---
Progress Note - Progress Note Date of Service: 06/28/17 SOAP: Subjective: 52 y/o female s/p L TKA by Dr. Rocha 06/25. VSS, afebrile overnight, requiring 2L o2, daily smoker. Patient eager for D/C working well with PT, no questions/ concerns. Objective: General- Well appearing, sitting at edge of bed comfortably, dressed. MSK- Dressing removed, I D/C/I, no drainage, mild ecchymosis around incision site, no induration, DF/PF = B/L, PT pulses 2+ b/l, sensation in tact to light touch b/l, neg homans b/l, new dressing placed. Vital Signs Temp 97.4 F 06/28/17 03:44 Pulse 87 06/28/17 03:44 Resp 18 06/28/17 04:57 BP 117/59 06/28/17 03:44 Pulse Ox 98 06/28/17 03:44 Intake & Output 06/27/17 06/28/17 06/28/17 18:59 06:59 18:59 Intake Total 740 500 Output Total 200 Balance 540 500 Intake: Oral 740 500 Output: Urine 200 Other: Estimated Void Small Estimated Stool Amount Medium # Voids 1 Laboratory Results - last 24 hr 06/28/17 06/28/17 05:10 05:10 Hgb 10.9 L Hct 32 L Plt Count 215 MPV 8 INR (Anticoag Therapy) 1.74 H Assessment: Stable 52 y/o female s/p L TKA by Dr. Rocha 06/25. Plan: [- Continue PT/OT - Pain medication adequate, continue - Follow up with DR Rocha within 10-14 days - Coumadin for DVT prophyl. as directed - Home with O2 due to low RA o2 levels, follow up with PCP to wean - Follow up with PCP for elevated glucose levels. ] Active Medications Generic Name Dose Route Start Last Admin Trade Name Freq PRN Reason Stop Dose Admin Albuterol/Ipratropium 1 neb 06/26/17 14:05 Duoneb (Albuterol 2.5 Mg/Ipratropium 0.5 Mg) INH Q6H PRN SOB/WHEEZING Bisacodyl 10 mg 06/25/17 14:14 Dulcolax Supp* NM DAILY PRN constipation Cetirizine HCl 10 mg 06/25/17 18:00 06/27/17 18:17 Zyrtec* PO 10 mg QPM MY[facility] Administration Cyclobenzaprine HCl 10 mg 06/26/17 15:33 06/27/17 15:19 Flexeril Tab* PO 10 mg TID PRN Administration SPASMS Diphenhydramine HCl 25 mg 06/26/17 06:00 Benadryl Iv* IV Q6H PRN itching Docusate Sodium 100 mg 06/25/17 21:00 06/27/17 20:49 Colace Cap* PO Not Given BID MYRA Duloxetine HCl 60 mg 06/25/17 18:00 06/27/17 18:17 Cymbalta Cap* PO 60 mg QPM MY[facility] Administration Enoxaparin Sodium 40 mg 06/26/17 16:00 06/27/17 15:24 Lovenox(*) SUBCUT 40 mg Q24H MY[facility] Administration Fluticasone Propionate 1 spray 06/25/17 18:00 06/27/17 18:17 Flonase Nasal [place] 50mcg* BOTH NARES 1 spray QPM MY[facility] Administration Ketorolac Tromethamine 30 mg 06/26/17 17:17 06/27/17 15:28 Toradol Inj* IV PUSH 06/28/17 17:00 30 mg Q6H PRN Administration PAIN - BREAKTHROUGH Lactulose 30 ml 06/25/17 14:14 Lactulose* PO ONCE PRN CONSTIPATION Magnesium Hydroxide 30 ml 06/25/17 21:00 06/27/17 20:49 Milk Of Magnesia Liq* PO Not Given BID MYRA Mometasone Furoate/Formoterol Fumar 1 puff 06/25/17 21:00 06/27/17 20:43 Dulera 200/5 Mdi* INH 1 puff BID MY[facility] Administration Protocol Montelukast Sodium 10 mg 06/25/17 18:00 06/27/17 18:17 Singulair Tab* PO 10 mg QPM MYRA Administration Morphine Sulfate 4 mg 06/26/17 06:00 06/26/17 13:52 Morphine Inj (Syringe)* IV 4 mg Q2H PRN Administration PAIN Multivitamins 1 tab 06/26/17 09:00 06/27/17 07:45 Theragran Tab* PO 1 tab DAILY [facility] Administration Ondansetron HCl 4 mg 06/26/17 06:00 Zofran Inj* IV Q6H PRN nausea Ondansetron HCl 4 mg 06/26/17 06:00 Zofran Tab* PO Q6H PRN NAUSEA Oxycodone HCl 10 mg 06/26/17 06:00 06/27/17 18:16 Roxycodone Tab* PO 10 mg Q4H PRN Administration PAIN - MODERATE Oxycodone/Acetaminophen 1 tab 06/26/17 06:00 06/27/17 02:58 Percocet 5/325 Tab* PO 1 tab Q4H PRN Administration PAIN Oxycodone/Acetaminophen 2 tab 06/26/17 06:00 06/28/17 04:57 Percocet 5/325 Tab* PO 2 tab Q4H PRN Administration PAIN Pharmacy Profile Note 1 note 06/26/17 17:00 06/27/17 18:17 Coumadin Daily Reminder* FOLLOW UP 1 note 1700 MY[facility] Administration Polyethylene Glycol/Electrolytes 17 gm 06/25/17 14:14 Miralax* PO DAILY PRN Constipation
--- NOTE | 2017-06-28 09:18 | PN ---
Hospitalist Progress Note HOSPITALIST ADDENDUM Patient qualifies for home O2 as she desaturates to 86% with exertion on RA. Requires 2 liters of O2 at this time. Will need to f/u with PCP to wean supplemental O2 down. Requires tobacco cessation education on discharge and she should not smoke while wearing oxygen. Hospitalist service will sign off. Please don't hesitate to call us with any questions.
[2017-06-28] MEDS: Magnesium Hydroxide LIQ* 30 ML UDC PO SCH (09:22)
[2017-06-28] MEDS: Mometasone/Formoter 200/5 MDI INH SCH (09:25)
[2017-06-28] MEDS: Vitamin THERAPEUTIC TAB PO SCH (09:26)
[2017-06-28] MEDS: Fluticasone NASAL SPRAY 50MCG* 16 gm SPRAY BTL BOTH NARES SCH (09:26)
[2017-06-28] MEDS: Docusate CAP* 100 MG PO SCH (09:28)
[2017-06-28 11:52] VITALS: BP 115/58
--- NOTE | 2017-06-28 20:17 | DS ---
DISCHARGE SUMMARY: DATE OF ADMISSION: 06/25/17 DATE OF DISCHARGE: 06/28/17 ATTENDING PHYSICIAN: Dr. Rocha * (DICTATED BY LAURY OH) CHIEF COMPLAINT: 1. Left knee pain. 2. Chronic obstructive pulmonary disease. 3. Depression. 4. History of basal cell carcinoma. DISCHARGE DIAGNOSES: 1. Status post left total knee arthroplasty, uncomplicated. 2. Chronic obstructive pulmonary disease. 3. Depression. 4. History of basal cell carcinoma. PROCEDURE: Left total knee arthroplasty. CONSULTATIONS: 1. Physical therapy. 2. Occupational therapy. 3. Medicine. BRIEF HISTORY: Mrs. Dinero is a very pleasant 52-year-old female with severe end - stage degenerative osteoarthritis of the left knee who failed conservative treatment and elected to undergo left total knee arthroplasty on 06/25/[address] Martha Rocha. HOSPITAL COURSE: Mrs. Dinero was admitted to [facility] on 06/25/17 where she underwent a left total knee arthroplasty. Postoperatively, she recovered on the surgical short stay unit. On postoperative day 2, her Shah was removed and she was voiding on her own without difficulty. She advanced to a regular diet and her pain was controlled with p.o. Percocet. She was restarted on her home medications. Her labs and vital signs remained stable as long as the patient was taking 2 L of oxygen by nasal cannula. Otherwise, the patient had a drop in her O2 levels. She was able to bear weight as tolerated on the left lower extremity. She advanced appropriately with physical therapy and occupational therapy. Her DVT prophylaxis was managed with Lovenox and Coumadin until she reached a therapeutic INR. By postoperative day 3, she was orthopedically and medically stable for discharge to go home with home services. PHYSICAL EXAMINATION: General: Well appearing, no acute distress, alert and oriented. Vital Signs: On the day of discharge, temperature 97.4, pulse 87, respirations 18, blood pressure 117/59, pulse oxygenation 98% on 2 L nasal cannula. Examination of the left lower extremity shows the incision to be clean , dry and intact with no drainage. Mild ecchymosis around the incision site. No induration. Moderate edema around the knee. New dressing was applied. Bilateral dorsiflexion and plantarflexion were equal. Posterior tibial pulses 2 + bilaterally. Sensation is intact to light touch, bilateral lower extremities. Negative Marianne's sign bilaterally. LABORATORY DATA: On the date of discharge included, H and H of 10.9 and 32 with an INR of 1.74. RADIOGRAPHS: Postoperative films of the left knee show a left knee arthroplasty and proper positioning. DISCHARGE MEDICATIONS: 1. Albuterol inhaler 2 puffs inhalation every 4 hours as needed for shortness of breath. 2. Albuterol/ipratropium nebulizer solution 1 nebulizer every 6 hours as needed for shortness of breath. 3. Symbicort 1 puff inhaled b.i.d. 4. Cyclobenzaprine 10 mg p.o. t.i.d. p.r.n. for muscle spasms. 5. Colace 100 mg p.o. b.i.d. 6. Cymbalta 60 mg p.o. q.p.m. 7. Levocetirizine 5 mg p.o. q.p.m. 8. Nasonex 50 mcg p.o. q.p.m. 9. Montelukast sodium 10 mg p.o. q. p.m. 10. Percocet 5/325 mg 1 to 2 tablets every 4 to 6 hours as needed for pain. 11. Coumadin 2 mg tablets 1 to 2 tablets daily at 5 p.m. per physician's instructions. CONDITION ON DISCHARGE: Stable. DISCHARGE INSTRUCTIONS: Mrs. Dinero is a very pleasant 52-year-old female, postoperative day 3, status post left total knee arthroplasty, which was uncomplicated. She is orthopedically and medically stable for discharge to go home with home services. Her labs and vital signs are stable. She restarted her home medications. She will take 6 mg Coumadin tonight, with 4 mg on and 6 mg on 06/30/17 and will have a repeat INR draw on Saturday. She will have INR draws every Saturday and with visiting home nurse services. She will remain weightbearing as tolerated on the left lower extremity. She will have home physical therapy twice a week. She will take Percocet as needed for pain control and Colace up to 3 times a day as needed for constipation. She will follow up with Dr. Rocha in approximately 10 to 14 days for incision check and suture removal. She was instructed to follow up with her primary care doctor with regards to elevated glucose levels, which she experienced as an inpatient. She will also follow up with her primary care doctor with regards to weaning her in-home O2, which was set up for her to remain on at all times. Should she develop fever, increasing redness or soreness, she is to call the office immediately. Should she develop shortness of breath or chest pain, she is to go to the ER. [place] [id number]/[facility] #: [id number] KRISTINA
== END 2017-06-28 13:40 | disposition home health service (06) | DRG 302 ==
LOC: AA 09:14 → SSU 17:22
PROVIDERS: ADMIT Orthopaedic Surgery Adult Reconstructive Orthopaedic Surgery; ATTEND Orthopaedic Surgery Adult Reconstructive Orthopaedic Surgery
PROC: 0SRD0J9 Replacement of Left Knee Joint with Synthetic Substitute, Cemented, Open Approach (ICD-10-PCS; principal; 2017-06-25 12:00)
DX: M17.0 Bilateral primary osteoarthritis of knee (principal); E66.01 Morbid (severe) obesity due to excess calories; Z68.42 Body mass index [BMI] 45.0-49.9, adult; J44.9 Chronic obstructive pulmonary disease, unspecified; F32.9 Major depressive disorder, single episode, unspecified; F17.210 Nicotine dependence, cigarettes, uncomplicated; F41.9 Anxiety disorder, unspecified; G89.29 Other chronic pain; J30.9 Allergic rhinitis, unspecified; G47.33 Obstructive sleep apnea (adult) (pediatric); R73.9 Hyperglycemia, unspecified; E86.0 Dehydration; R09.02 Hypoxemia; Z85.828 Personal history of other malignant neoplasm of skin; Z91.048 Other nonmedicinal substance allergy status; Z81.8 Family history of other mental and behavioral disorders; Z82.5 Family history of asthma and other chronic lower respiratory diseases; Z83.3 Family history of diabetes mellitus; Z79.01 Long term (current) use of anticoagulants
CPT/HCPCS: 36415; 62323; 80048; 83036; 85014; 85018; 85049; 85610; 94640; 94760; 94762; A9270-GY; C1776; J0690; J1100; J1200; J1650; J1885; J2250; J2270; J2405; J2704; J2795; J3010; J7644

== ENCOUNTER 2019-10-10 11:20 | Emergency (ER) | payer BC ==
[2019-10-10 11:44] VITALS: BP 109/70
--- NOTE | 2019-10-10 12:19 | UC ---
Respiratory Complaint HPI - HPI Summary HPI Summary: Per new order clerk: "Sinus congestion, post nasal drip and sore throta x1 week. Intermittent left ear discomfort. Denies fever. Does have cold chills. Fatigue. " - lungs feel fine. no sinus pain/pressure + smoker -no throat pain now. comes and goes. no fever - History of Current Complaint Chief Complaint: UCGeneralIllness Stated Complaint: SINUSES/ST Time Seen by Provider: 10/10/19 11:53 Hx Last Menstrual Period: 06/2012 Pain Intensity: 3 - Allergies/Home Medications Allergies/Adverse Reactions: Allergies Allergy/AdvReac Type Severity Reaction Status Date / Time No Known Allergies Allergy Verified 10/10/19 11:38 Home Medications: Home Medications Albuterol HFA INHALER* [Ventolin HFA Inhaler*] 2 puff INH Q4H PRN 09/29/12 [ History Confirmed 10/10/19] Levocetirizine Dihydrochloride [Levocetirizine Dihydrochl] 5 mg PO QPM 09/29/12 [History Confirmed 10/10/19] Mometasone Furoate (Nasal) [Nasonex] 50 mcg NA QPM 09/29/12 [History Confirmed 10/10/19] Montelukast Sodium 10 mg PO QPM 09/29/12 [History Confirmed 10/10/19] Budesonide/Formote 160/4.5(NF) [Symbicort 160/4.5 (NF)] 1 puff INH BID 06/12/17 [History Confirmed 10/10/19] DULoxetine DR CAP* [Cymbalta CAP*] 60 mg PO QPM 06/12/17 [History Confirmed 02/21] Albuterol/Ipratropium NEB.THONY* [Duoneb (Albuterol 2.5 MG/Ipratropium 0.5 MG)] 1 neb INH Q6H PRN neb.soln 06/28/17 [Rx Confirmed 10/10/19] PMH/Surg Hx/FS Hx/Imm Hx Previously Healthy: Yes Respiratory History: COPD - Surgical History Surgical History: Yes Surgery Procedure, Year, and Place: [place]. tubaligation. rectal polyp. bas. cell skin cancer. T&A. Left knee total - Family History Known Family History: Positive: Hypertension - Social History Alcohol Use: None Substance Use Type: None Smoking Status (MU): Heavy Every Day Tobacco Smoker Type: Cigarettes Amount Used/How Often: 1 1/2 PPD Have You Smoked in the Last Year: Yes - Immunization History Most Recent Influenza Vaccination: 2017 Most Recent Pneumonia Vaccination: 2016 Review of Systems All Other Systems Reviewed And Are Negative: Yes Constitutional: Positive: Fatigue. Negative: Fever Skin: Positive: Negative. Negative: Rash Eyes: Positive: Negative ENT: Positive: Sore Throat, Ear Ache, Nasal Discharge. Negative: Sinus Pain/ Tenderness Respiratory: Positive: Negative. Negative: Shortness Of Breath, Cough Cardiovascular: Positive: Negative. Negative: Palpitations, Chest Pain Gastrointestinal: Positive: Negative. Negative: Vomiting, Diarrhea, Nausea Genitourinary: Positive: Negative. Negative: Dysuria Motor: Positive: Negative Neurovascular: Positive: Negative Musculoskeletal: Positive: Negative Neurological/Mental Status: Positive: Negative Psychological: Positive: Negative Is Patient Immunocompromised?: No Physical Exam Triage Information Reviewed: Yes Appearance: Well-Appearing, No Pain Distress, Well-Nourished - strong smell of ciggarette smoke Vital Signs: Initial Vital Signs Temp 97.9 F 10/10/19 11:37 Pulse 94 10/10/19 11:37 Resp 26 10/10/19 11:37 BP 109/70 10/10/19 11:37 Pulse Ox 98 10/10/19 11:37 Vital Signs Reviewed: Yes Eye Exam: Normal ENT Exam: Normal ENT: Positive: Pharynx normal - + PND, Nasal congestion, Nasal drainage, Uvula midline. Negative: Tonsillar swelling, Tonsillar exudate, Sinus tenderness Neck exam: Normal Neck: Positive: Supple, Nontender, No Lymphadenopathy Respiratory Exam: Normal Respiratory: Positive: Lungs clear, Normal breath sounds, No respiratory distress, No accessory muscle use. Negative: Crackles, Rhonchi, Stridor, Wheezing Cardiovascular Exam: Normal Cardiovascular: Positive: RRR Abdominal Exam: Normal Abdomen Description: Positive: Nontender Musculoskeletal Exam: Normal Neurological Exam: Normal Psychological Exam: Normal Skin Exam: Normal Skin: Negative: Rashes Respiratory Course/Dx - Course Course Of Treatment: no e/o bacterial infection. no sinusitis, unlikely strep. viral. counseleld and reassured. v/u. asks for work note for today - Differential Dx/Diagnosis Differential Diagnosis/HQI/PQRI: Asthma, Bronchitis, Laryngitis Provider Diagnosis: URI (upper respiratory infection) Discharge ED - Sign-Out/Discharge Documenting (check all that apply): Patient Departure All imaging exams completed and their final reports reviewed: No Studies - Discharge Plan Condition: Stable Disposition: HOME Patient Education Materials: Upper Respiratory Infection (ED) Forms: *Work Release Referrals: Hawa Roach PA [Primary Care Provider] - 6 Days Additional Instructions: There is no evidence of any bacterial infection at this time. Drink plenty of fluids and get rest. You should be seen sooner with worsening symptoms, fevers, etc - Billing Disposition and Condition Condition: STABLE Disposition: Home
== END 2019-10-10 12:32 | disposition home or self-care (01) ==
LOC: UCCORT 11:20
DX: J06.9 Acute upper respiratory infection, unspecified (principal); J44.9 Chronic obstructive pulmonary disease, unspecified; F17.210 Nicotine dependence, cigarettes, uncomplicated; R53.83 Other fatigue
CPT/HCPCS: 99211; G0463